=== PATIENT | male | born 1940 | race Caucasian/White ===

== ENCOUNTER 2019-10-14 10:02 | Observation (INO) | payer MEDICARE, OTHER ==
[~2019-10-14] VITALS: Ht 180.3 cm; Wt 75.9 kg
--- NOTE | 2019-10-14 13:00 | NUR ---
PT ARRIVED FROM ER. REPORT RECEIVED FROM FERDINAND OLSEN. PT TRANSFERES SELF TO BED, STEADY ON FEET WITH SBA. ASSESSMENT DONE. CRACKELS NOTED IN LOWER LOBES. RR = 20, WITH INCREASED LABOR WITH ACTIVITY. EDUCATION DONE WITH PT REGARDING DIAGNOSIS AND HOSPITAL STAY. SALT RESTRICION REVEIED WITH PT. LUNCH ORDERED. MEDICAITON GIVEN (SEE MAR). PT DENIES ADDITIONAL REQUESTS OR COMLAINTS AT THIS TIME. CALL LIGHT WITHIN REACH. FAMILY AT BEDSIDE.
--- NOTE | 2019-10-14 13:54 | NUR ---
THIS RN TO ROOM TO CHECK ON PT. LUNCH ARRIVED. PT UP TO CHAIR FOR LUNCH. MECHANICAL ENGINEERING DIRECTOR TO BEDSIDE FOR VITAL SIGNS. NO ADDITIONAL REQUESTS OR COMPLAINTS. CALL LIGHT WITHIN REACH.
--- NOTE | 2019-10-14 14:56 | NUR ---
THIS RN TO ROOM TO CHECK ON PT. PT RESTING IN CHAIR WITH EYES CLOSED. RESPIRATIONS EVEN AND UNLABORED. CALL LIGHT WITHIN REACH. PT ALLOWED TO REST.
--- NOTE | 2019-10-14 17:09 | NUR ---
PT SITTING UP IN CHAIR ALERT AND ORIENTED. CALL LIGHT AND FRESH ICE WATER IN REACH. PT DENIES NAUSEA, PAIN, SOB OR ANY OTHER SYMPTOMS. PT DENIES NEEDS OR CONCERNS. FAMILY AT BEDSIDE VISITING WITH PATIENT FAMILY ALSO DENIES NEEDS OR CONCERNS AT THIS TIME.
--- NOTE | 2019-10-14 17:33 | NUR ---
AFTERNOON ASSESSMENT DUE. PT VOIDING WELL WITH LASIX, LUNG SOUNDS IMPROVED WITH MINIMAL CRACKELS NOTED. PT DENIES PAIN AND NAUSEA. NO SWELLING IN EXTREMITIES NOTED. PT VISITING WITH FAMILY. CALL LIGTH WITHIN REACH. DINNER AT CHAIRSIDE. NO ADDITIONAL REQUESTS OR COMPLAINTS. CALL LIGHT WITHIN REACH.
--- NOTE | 2019-10-14 18:35 | NUR ---
PT NEW ADMIT TODAY WITH NEW DIAGNOSIS OF A-FIB AND HEART FAILURE. PULMONARY EDEMA NOTED. IV LASIX GIVEN, WITH GOOD RESPONSE. PT INDEPENDANT IN ROOM. HEART FAILURE EDUCATION DONE, CONTINUE TO REINFORCE. PT TOLERATING LOW SODIUM DIET WELL. TELE IN PLACE WITH A-FIB RHYTHEM, HR 70-90'S. PIV SALINE LOCKED. PT USES CALL LIGHT APPROPRIATLY.
--- NOTE | 2019-10-14 18:46 | NUR ---
PATIENT IS SETTING UP WATCHING TV. CALL LIGHT IN REACH ,FRESH WATER GIVEN
--- NOTE | 2019-10-14 19:26 | NUR ---
RECEIVED REPORT FROM FERDINAND SPAIN. pt SITTING IN CHAIR. NO REQUESTS AT THIS TIME. CALL LIGHT WITHIN REACH.
--- NOTE | 2019-10-14 22:02 | NUR ---
ASSESSMENT DONE. DENIES PAIN AND SOB AT THIS TIME. VITALS AND I&O RECORDED. NO REQUESTS. CALL LIGHT WITHIN REACH.
--- NOTE | 2019-10-14 23:17 | EKG ---
[facility] [address] [facility] [place] [address] Signed Atrial fibrillation Low voltage QRS Prolonged QT Abnormal ECG No previous ECGs available Confirmed by SANDIE KWAN MD ([id number] on 10/14/2019 11:16:52 PM Electronically Signed By: SANDIE KWAN MD 10/14/19 2317 PATIENT NAME: ABIGAIL RENE Electrocardiogram DATE OF : 42 PHYSICIAN: SANDIE KWAN MD REPORT #: [id number] REPORT IS CONFIDENTIAL AND NOT TO BE RELEASED WITHOUT AUTHORIZATION
--- NOTE | 2019-10-15 00:20 | NUR ---
ROUNDED ON pt. RESTING WITH EYES CLOSED, RESPIRATIONS REGULAR AND UNLABORED. CALL LIGHT WITHIN REACH.
--- NOTE | 2019-10-15 01:53 | NUR ---
VITALS AND I&O RECORDED. pt REPORTED HAVING SLEPT "A LITTLE BIT" NO REQUESTS AT THIS TIME. pt DENIES PAIN AND SOB. ASSESSMENT DONE. CALL LIGHT WITHIN REACH.
--- NOTE | 2019-10-15 03:28 | NUR ---
PT HAD NINE BEATS OF VTACH. FERDINAND VIVEROS AND MED SURG CHARGE NOTIFIED.
--- NOTE | 2019-10-15 03:31 | NUR ---
FERDINAND SKELTON CALLED, TELE #8 SHOWED 9 BEATS OF VTACH. IN TO ASSESS pt. pt ASLEEP WOKE TO VOICE. DENIED PALPITATIONS, SOB, LIGHTHEADNESS, ETC. STATED "I FEEL JUST FINE." COSTA UPDATED.
--- NOTE | 2019-10-15 06:05 | NUR ---
ROUNDED ON pt. NO COMPLAINTS, DENIES PAIN. CALL LIGHT WITHIN REACH.
--- NOTE | 2019-10-15 06:08 | NUR ---
pt RESTED MOST OF SHIFT. INDEPENDENT IN ROOM. TELE #8, A FIB RATE 60'S-70'S, ONE EPISODE OF 9 BEATS OF V TACH NOTED. pt WAS SLEEPING DURING EPISODE, NO SYMPTOMS REPORTED. IV SL. USES CALL LIGHT APPROPRIATLEY.
--- NOTE | 2019-10-15 06:47 | NUR ---
UPDATED ON VTACH EPISODE. NO NEW ORDERS AT THIS TIME.
--- NOTE | 2019-10-15 07:02 | NUR ---
REPORT RECEIVED FROM FERDINAND VIVEROS. PT RESTING ON RIGHT SIDE WITH EYES CLOSED, RESPIRATIONS EVEN AND UNLABORED. BED RAILS UP. CALL LIGHT WITHIN REACH. PT ALLOWED TO REST.
--- NOTE | 2019-10-15 08:26 | NUR ---
PATIENT SITTING UP IN CHAIR. PATIENT REFUSED TO TAKE A SHOWER TODAY BECAUSE HE THINKS THAT HE WILL GO HOME TODAY AND PREFERS TO TAKE A SHOWER AT HOME. URINAL WAS EMPTIED. CALL LIGHT WITHIN REACH. NO OTHER NEEDS AT THIS TIME
--- NOTE | 2019-10-15 09:18 | NUR ---
PATIENT SITTING UP IN CHAIR. VISITOR IN ROOM. VITAL SIGNS AND I&O DONE. CALL LIGHT WITHIN REACH. NO OTHER NEEDS AT THIS TIME
--- NOTE | 2019-10-15 10:05 | NUR ---
MORNING ASSESSMENT AND MEDICAITON DUE. PT UP TO CHAIR, FINISHED WITH BREAKFAST. EDUCATION DONE WITH PT REGARDING HEART FAILURE AND GREEN/YELLOW/RED ZONES AND DAILY WEIGHTS. PT DEMONSTRATES UNDERSTANDING AND STATES HE FEELS HE IS "BACK TO NORMAL" IN THE "GREEN" ZONE TODAY. LUNG SOUNDS CLEAR. KENA, HEART FAILURE NURSE TO BEDSIDE TO TALK WITH PT. NO ADDITONAL REQUESTS OR COMPLAINTS AT THIS TIME. CALL LIGHT WITHIN REACH.
--- NOTE | 2019-10-15 11:05 | NUR ---
Certified Heart Failure Nurse Notes: Diagnosis: CHF , atrial fibrillation [employer] Technician - not currently established PCP:not currently established Date of echocardiogram 10/15/19 results pending Today's Wt.: 167lb Admit BNP:627 Social support system: family at bedside Weight monitoring: No scale present in home. Mr Peres states he will and can purchase one at discharge. Identifies how to weigh daily/ identifies when to notify PCP Symptom management: Addressed monitoring and reporting changes in weight or symptoms utilizing Zones form Transportation mode: Has transportation for medical appointments, no concerns identified. Diet: Usual meals include home cooked items. Does not salt food. Rarely dines out or uses canned items such as soup. Demonstrated label reading for sodium and serving size. Recommended <2300 mg day. Usual physical activity: Farm work, works with livestock. Recommended walking routine after acute phase. Medication routine: Does not currently take any home medications. Patient given pill box to use at home and importance of taking cardiac medications on time reinforced. Tobacco:NA Advanced directive: Not discussed at this initial visit Recommendations prior to discharge: Document ambulation oxygen saturations prior to discharge Absence of orthostatic hypotension. Follow up appointment made prior to DC Discharge weight less than admit weight. Discharge BNP less than admit (as per [facility] Heart Failure DC Bundle) Barriers to self-care include: not established with PCP Follow-up plans: Will contact new PCP if patient qualifies for cardiac rehabilitation program. Post discharge f/u call to patient. Teaching materials given today: [facility] Heart Failure bundle folder-[facility] My Action Plan Living Well with Heart Failure book, Daily weight and symptom monitoring log, Zones magnet, [facility] contact information. Low Sodium Shopping list. 7 day pill reminder box
--- NOTE | 2019-10-15 12:03 | NUR ---
Spoke with Duglas and his daughter Radha. He lives outside [place] in a 5th wheel trailer. He is retired but does not use Medicare, states he is on the [employer] medicaid as this is more cost effective. His daughter will check on him when he discharges home. Appt. to establish care Dr. Chen scheduled for October 31 at 9 am. Pt states he usually healthy and plans discharge to his trailer alone. He denies use of any DME. 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 Berta Smith notified of incorrect address, phone number, and medicare as insurance for correction.
--- NOTE | 2019-10-15 13:06 | NUR ---
NOON ASSESSMENT DUE. THIS RN TO BEDSIDE. PT STATES HE IS READY TO LEAVE AND WOULD LIKE TO LEAVE SOON POSSIBLE. PT UPDATED ON PLAN OF CARE. EDUCATION DONE REGARDING EPISODE OF V-TACH AND PENDING ECHO RESULTS. PT RELUCANT TO STAY BUT VERBALIZES UNDERSTANDING. PT ENCOURAGED TO AMBULAT. PT UP TO AMBULATE DOWN MAIN KNIGHT. HR 70-80'S WITH AMBULATION. PT DENIES DYSPNEA WITH AMBULATION. A-FIB RHYTHEM. NO ADDITONAL REQUESTS OR COMPLAINTS AT THIS TIME. PT AMBULATING WITH DAUGHTER, CLAIRE. NO ADDITIONAL REQUESTS OR COMPLAINTS AT THIS TIME.
--- NOTE | 2019-10-15 13:26 | NUR ---
PATIENT SITTING UP IN CHAIR. VISITORS IN ROOM. VITAL SIGNS AND I&O DONE. CALL LIGHT WITHIN REACH. NO OTHER NEEDS AT THIS TIME
--- NOTE | 2019-10-15 14:15 | NUR ---
THIS RN TO ROOM TO CHECK ON PT. PT RESTING IN CHAIR WATCHING TV PROGRAM. WALK ENCORUAGED. PT STATES HE WILL WALK AFTER TV PROGRAM. NO ADDITIONAL REQUESTS OR COMPLAINTS AT THIS TIME. CALL LIGHT WITHIN REACH.
--- NOTE | 2019-10-15 14:28 | NUR ---
CONSULT RECEIVED FOR DIET EDUCATION FOR CHF. PATIENT SITTING IN CHAIR WATCHING TV. HE LIVES ALONE, DOES HIS OWN COOKING. DOESN'T EAT OUT VERY OFTEN. USUALLY MAKES MEAT, POTATOES, AND A VEGETABLE. SOMETIMES BUYS "THE CHEAPEST" CANNED VEGGIES, NOT PAYING ATTENTION TO IF THEY ARE NO SALT ADDED. I MENTIONED SOME ARE NO SALT ADDED AND SOME AREN'T SO BE SURE TO READ THE LABEL. HE WILL SAVE [address] SODIUM PER SERVING THAT [address]. HE READ OVER THE LOW-SODIUM GROCERY LIST ALREADY. REMINDED HIM TO KEEP HIS SODIUM INTAKE TO 2300 MG OR LESS EACH DAY.
[2019-10-15] MEDS ORDERED: POTASSIUM CHLO10 ME1 PO (16:03)
[2019-10-15] MEDS ORDERED: FUROSEMIDE20 MG PO (16:03)
--- NOTE | 2019-10-15 16:30 | NUR ---
THIS RN TO ROOM TO CHECK ON PT. 15 MINUTE DISSCUSSION HELD ABOUT PTS LIFE, HEART FAILURE AND FUTURE APPOINTMENTS. PT TEARFUL WITH NEW DIAGNOSIS. PT STATES GRATITUTE TO STAFF FOR THEIR SUPPORT. PT VERBALIZES UNDERSTANDING OF OPTIONS AND EDUCATION. PT REMAINS UP TO CHAIR. NO ADDITIONAL REQUESTS OR COMPLAINTS. CALL LIGHT WITHIN REACH.
--- NOTE | 2019-10-15 16:40 | NUR ---
REVIEWED WITH PT ABOUT CHF, PT STATES HE NORMALLY WEIGHS ABOUT 175 OR SO. "MY PANTS ARE FALLING OFF OF ME" STATES HE EATS GOOD FOOD NOT HIGH IN SODIUM. "I COOK FOR MYSELF, I THINK MY PROBLEM COMES FROM TOO MUCH STRESS IN MY LIFE AVERY I AM UNDER A LOT OF STRESS OF LATE." WE DISCUSSED THAT YES STRESS CAN CAUSE SX AND SIGNS OF CHF. PT STATES "I DON'T HAVE SWELLING, I DON'T EAT SALT. I DON'T GET IT" WE DISCUSSED IT A LITTLE MORE. I TOLD HIM I WILL RETURN TOMORROW TO TALK WITH HIM ABOUT IT MORE.
--- NOTE | 2019-10-15 17:25 | NUR ---
PT READY FOR DISCHARGE. PT DRESSES SELF WITH SBA. PIV DC'D PER PROTOCOL. GAUZE AND COBAN APPLIED. TELE DC'D. VITALS TAKEN. DISCHARGE INSTRUCTIONS REVIEWED WIHT PT. PT VERBALIZES UNDERSTANDING OF MEDICATIONS, FOLLOW UP APPOINTMENT AND INSTRUCTIONS. PT STATES HIS QUESTIONS HAVE BEEN ANSWERED. PT IS STAYING TO FINISH DINNER AND WAIT FOR HIS DAUGHTER BEFORE LEAVING THE HOSPITAL. NO ADDITIONAL REQUESTS OR COMPLAINTS AT THIS TIME. CALL LIGHT WITHIN REACH.
--- NOTE | 2019-10-15 17:25 | NUR ---
PATIENT SITTING UP IN CHAIR. RN IN ROOM. VITAL SIGNS AND I&O DONE. CALL LIGHT WITHIN REACH. NO OTHER NEEDS AT THIS TIME
--- NOTE | 2019-10-15 18:15 | NUR ---
PT FINISHED WITH DINNER. ALL BELONGINGS PACKED AND TRANSPORTED WITH PT. PT AMBULATED FROM MED/SURG WITH FAMILY. NO ADDIITONAL REQUESTS OR COMPLAINTS AT THIS TIME.
== END 2019-10-15 18:15 | disposition home or self-care (01) ==
LOC: ED 10:02 → MS 10:03
PROVIDERS: ADMIT Internal Medicine
DX: I50.9 Heart failure, unspecified (principal); I34.0 Nonrheumatic mitral (valve) insufficiency; I48.91 Unspecified atrial fibrillation; I27.20 Pulmonary hypertension, unspecified; Z79.899 Other long term (current) drug therapy
CPT/HCPCS: 36415; 71045; 80048; 80053; 80061; 83735; 83880; 84484; 85025; 93005; 93010; 93306; 99285-25; G0378; J1940

== ENCOUNTER 2021-05-13 12:21 | Emergency (ER) | payer MEDICARE, OTHER ==
[~2021-05-13] VITALS: Ht 177.8 cm; Wt 72.6 kg
[~2021-05-13 12:21] MED LIST: FUROSEMIDE20 MG PO; POTASSIUM CHLO10 ME1 PO
[2021-05-13] MEDS ORDERED: LASIX20 MG PO (12:47)
[2021-05-13] MEDS ORDERED: ELIQUIS5 MG PO (12:48)
[2021-05-13] MEDS ORDERED: METOPROLOL SUCC25 MG PO (12:48)
[2021-05-13] MEDS ORDERED: K-TAB ER20 MEQ PO (12:48)
--- NOTE | 2021-05-14 15:49 | EKG ---
[facility] [address] [facility] [place] [address] Signed Atrial fibrillation with premature ventricular or aberrantly conducted complexes Right superior axis deviation Low voltage QRS Inferior infarct , age undetermined Abnormal ECG When compared with ECG of 14-OCT-2019 10:16, QRS axis shifted left Nonspecific T wave abnormality, worse in Inferior leads Confirmed by NIA BELLO MD ([id number]) on 05/14/2021 3:49:08 PM Electronically Signed By: NIA BELLO MD 05/14/21 1549 PATIENT NAME: ABIGAIL RENE Electrocardiogram DATE OF : 42 PHYSICIAN: NIA BELLO MD REPORT #: [id number] REPORT IS CONFIDENTIAL AND NOT TO BE RELEASED WITHOUT AUTHORIZATION
== END 2021-05-13 15:55 | disposition home or self-care (01) ==
LOC: ED 12:21
DX: U07.1 COVID-19 (principal); I48.91 Unspecified atrial fibrillation; I50.9 Heart failure, unspecified; Z79.01 Long term (current) use of anticoagulants; Z79.899 Other long term (current) drug therapy
CPT/HCPCS: 71045; 80053; 80500; 84484; 85025; 93005; 93010; 99284-25; M0243; Q0244

== ENCOUNTER 2022-01-22 09:40 | Inpatient (IN) | payer MEDICARE, OTHER ==
[~2022-01-22] VITALS: Ht 177.8 cm; Wt 67.6 kg
[~2022-01-22 09:40] MED LIST changes: +ELIQUIS5 MG PO; +K-TAB ER20 MEQ PO; +LASIX20 MG PO; +METOPROLOL SUCC25 MG PO
[2022-01-22] MEDS ORDERED: AMIODARONE HCL200 MG PO (10:05)
[2022-01-22] MEDS ORDERED: LOSARTAN POTASS50 MG PO (10:05)
--- NOTE | 2022-01-22 12:56 | NUR ---
REPORT RECEIVED FROM METAL CASTER AND PT. ARRIVED VIA STRETCHER. HE IS ALERT AND ORIENTED. ON ROOM AIR. PT. BECAME TACHYPNEIC WHEN AMBULATING WITH 1PA TO THE BED. O2 SAT WAS 97%. IV ABX INFUSING AND AND IV FLUSHES WELL. DAUGHTER PRESENT. CHARGE NURSE IN TO ASSIST WITH SETTLING PT.
--- NOTE | 2022-01-22 13:54 | NUR ---
PT. ASSESSMENT COMPLETED. PT. REPORTS FEELING SOB, 02 SAT REMAINS 97%. HE REMAIN S TACHYPNEIC. WILL CONTINUE TO MONITOR. HE DENIES FURTHER NEEDS.
--- NOTE | 2022-01-22 15:00 | NUR ---
H.R. SHOWN ON THE MONITOR TO BE 130S. THIS NURSE CHECKED ON PT. HE WAS FOUND LYING HORIZONTAL ON BED WITH LEGS OVER THE EDGE. BREATHING LABORED. PT. UNABLE TO SIT UP AND REQUIRES TWO STAFF TO HOLD HIM UP TO USE URINAL. PT. HAD AN INCONTINENT BM AND CHANGED/CLEANED. HE STATES HE HAD A SIMILAR EPISODE LAST NIGHT. VITALS STABLE AND O2 SAT IS 94% ON RA. TELEMETRY READING ASYSTOLE. BATTERY AND TELEMETRY CHANGED AND LEADS REPOSITIONED. PACER SPIKES APPEAR TO BE ABNORMAL. VERBAL ORDER GIVEN BY FOR PACEMAKER INTEROGATION. DAUGHTER CALLED FOR PACER INFO. PT. BROUGHT FRESH WATER AND LEFT RESTING WITH CALL LIGHT IN REACH.
--- NOTE | 2022-01-22 15:27 | NUR ---
PATIENT HAVING PACEMAKER SPIKES AFTER QRS AND IN THE MIDDLE OF QRS. MD GAMBLE NOTIFIED OF TELEMETRY RESULTS. PER MD SORTO PACEMAKER. PATIENT DID NOT KNOW WHAT DEVICE HE HAD. RECORDS RECIEVED. PATIENTS DEVICE IS A [employer] PACEMAKER. LARISSA STREETER NOTIFIED OF PLANS.
--- NOTE | 2022-01-22 18:18 | NUR ---
AIR POLLUTION INSPECTOR REPORTS TEMP WAS 101.2 RECHECKED 20 MINUTES LATER AND WAS 99.4. PT HAD AN INCONTINENT VOID AND ASSISTED WITH CLEANING AND CHANGING BED. ASSISTED WITH SET UP FOR DINNER.
--- NOTE | 2022-01-22 19:00 | NUR ---
RECE[facility] PT IN BED, WATCHING TV.
--- NOTE | 2022-01-22 20:50 | NUR ---
in to get vitals, no further needs at this time
--- NOTE | 2022-01-22 21:30 | NUR ---
ASSESSMENT COMPLETED. PT ON RA, STATES THAT HE DOES HAVE ABDOMINAL PAIN OFF AND ON, THINKS HE WILL NEED TO HAVE BM SOON, ALTHOUGH HE HAD BM "YESTERDAY". CHEEKS FLUSHED, AFEBRILE. DENIES NEEDS, AWARE TO CALL IF HE NEEDS TO USE BATHROOM. TELE SHOWING PACED RHYTHYM. ON FLUID RESTRICTION. EDEMA BILATERAL FEET/ANKLES.
--- NOTE | 2022-01-22 22:15 | NUR ---
pt assisted to the bsc 2pa pivot, new attends in place, back to bed, no further needs at this time
--- NOTE | 2022-01-23 00:37 | NUR ---
CHECKED ON PT. LAYING ON HIS RIGHT SIDE, MOVING HIS LEFT HAND, EYES CLOSED. DRY COUGH HEARD OCCASSIONAL
--- NOTE | 2022-01-23 01:26 | NUR ---
CALLED CALLED TO NOTIFY ABOUT PT HAVING 100.9 F. TEMP THIS IS MEETS CALL [employer]. ALSO CLARIFIED THAT MD WANTS PT NPO NOW RATHER THAN AT BREAKFAST. NPO NOW, NO OTHER ORDERS AT THIS TIME, WILL CONT. TO MONITOR CLOSE.
--- NOTE | 2022-01-23 03:39 | NUR ---
PT CALLED NURSES STATION FOR ASSISTANCE TO USE BEDSIDE COMMODE, TWO PERSON PT IS WEAK AND UNSTEADY.
--- NOTE | 2022-01-23 05:53 | NUR ---
PT UP TO BEDSIDE COMMODE TWO PERSON HE MOVES FAST AND IS UNSTEADY. HE WAS ABLE TO VOID AND HAVE SMALL STOOL. TEMP 99.7 F AT THIS TIME ORAL.
--- NOTE | 2022-01-23 09:35 | NUR ---
MORNING ASSESSMENT COMPLETE. PT ON RA. FLUSHED CHEEKS. STATES OCCASIONAL ABD PAIN, DENIES NEED FOR INTERVENTION AT THIS TIME. PT DIET CHANGED TO 2GM SODIUM DIET FROM NPO, BREAKFAST TRAY ORDERED. FAMILY AT BEDSIDE. DENIES FURHTER NEEDS AT THIS TIME. CALL LIGHT WITHIN REACH.
--- NOTE | 2022-01-23 11:59 | NUR ---
Pt sitting up eating lunch. Family at bedside. Denies needs at this time. Call light within reach.
--- NOTE | 2022-01-23 12:00 | NUR ---
PT ASSISTED TO RESTROOM, 1 PERSON ASSIST. UNSTEADY WITH AMBULATION. YELLOW/BROWN LOOSE STOOL NOTED.
--- NOTE | 2022-01-23 13:07 | NUR ---
PT BP 91/50 MAP 60, SPOKE WITH DR GAMBLE REGARDING LASIX 40MG, HOLD THIS DOSE. NO FURTHER ORDERS.
--- NOTE | 2022-01-23 15:54 | NUR ---
PT RESTING IN BED, AWAKENS EASILY. DENIES NEEDS AT THIS TIME. CALL LIGHT WITHIN REACH.
--- NOTE | 2022-01-23 17:55 | NUR ---
PT SITTING UP IN BED EATING DINNER. DENIES NEEDS AT THIS TIME. CALL LIGHT WITHIN REACH.
--- NOTE | 2022-01-23 19:40 | NUR ---
REPORT RECEIVED FROM DAY SHIFT RN. PT LYING IN BED ON LEFT SIDE RESTING WITH EYES CLOSED. RESPIRATIONS EVEN. WHITE BOARD UPDATED. CALL LIGHT IN REACH.
--- NOTE | 2022-01-23 20:27 | NUR ---
PATIENTS TELE LEADS FIXED. PATIENT ASSISTED TO TURN ON HIS LEFT SIDE. NO FURTHER NEEDS NOTED. CALL LIGHT IN REACH.
--- NOTE | 2022-01-23 20:45 | NUR ---
EVENING ASSESSMENT COMPLETE. PT DENIES PAIN OR NAUSEA. DENIES SOB AT REST. RESPIRATIONS EVEN. TELE #[address] PACED RHYTHM, HR 60'S. VS AND I&O COMPLETE. PT AFEBRILE. EDEMA NOTED IN BLE. ASSISTED PT TO REPOSITION IN BED. DENIES QUESTIONS OR CONCERS. BED ALARM FOR SAFETY. CALL LIGHT IN REACH.
--- NOTE | 2022-01-23 22:24 | NUR ---
BED ALARM SOUNDING. PT UP TO SIDE OF BED TO VOID 250 ML CONCENTRATED URINE WITH SBA. BACK TO BED, SALINA WELL. BED ALARM ON. CALL LIGHT IN REACH.
--- NOTE | 2022-01-24 00:19 | NUR ---
PT RESTING IN BED WITH EYES CLOSED. RESPIRATIONS EVEN. BED ALARM FOR SAFETY. CALL LIGHT IN REACH.
--- NOTE | 2022-01-24 02:42 | NUR ---
PT RESTING ON LEFT SIDE WITH EYES CLOSED. RESPIRATIONS EVEN. TELE #4. HR 60'S. BED ALARM FOR SAFETY. CALL LIGHT IN REACH.
--- NOTE | 2022-01-24 03:30 | NUR ---
PT REPOSITIONING SELF IN BED. TELE LEADS WERE OFF, IN ROOM TO REPLACE. PT DENIES PAIN OR NAUSEA. DENIES SOB OR CHEST PAIN. ASSISTED TO STRAIGHTEN LINEN. ASSESSMENT COMPLETE. PT DENIES FURTHER NEEDS. BED ALARM ON. CALL LIGHT IN REACH.
--- NOTE | 2022-01-24 06:37 | NUR ---
VS AND I&O COMPLETE. PT UP TO BR WITH SBA AND FWW TO VOID 350 ML CONCENTRATED URINE. GAIT WEAK AND UNSTEADY. BACK TO BED. DENIES SOB AT THIS TIME. NO FURTHER NEEDS. CALL LIGHT IN REACH.
--- NOTE | 2022-01-24 10:03 | NUR ---
PATIENT UP TO CHAIR, 1PA FWW. VITALS AND I&O'S CHARTED. CHAIR ALARM ON. CALL LIGHT IN REACH. NO FURTHER NEEDS AT THIS TIME.
--- NOTE | 2022-01-24 10:06 | NUR ---
MED REC COMPLETE
--- NOTE | 2022-01-24 10:31 | NUR ---
MORNING ASSESSMENT COMPLETE. PT SITTING UP IN RECLINE, DENIES NEEDS AT THIS TIME. CALL LIGHT WITHIN REACH.
--- NOTE | 2022-01-24 11:18 | NUR ---
PT ASSISTED FROM BATHROOM TO RECLINER. DENIES NEEDS AT THIS TIME. CALL LIGHT WITHIN REACH.
--- NOTE | 2022-01-24 12:39 | NUR ---
PT SITTING UP IN RECLINER, DENIES NEEDS AT THIS TIME. CALL LIGHT WITHIN REACH.
--- NOTE | 2022-01-24 15:55 | NUR ---
PT RESTING IN RECLINER. RESPIRATIONS EVEN AND UNLABORED. CALL LIGHT WITHIN REACH.
--- NOTE | 2022-01-24 19:41 | NUR ---
REPORT RECEIVED FROM DAY SHIFT RN. PT SITTING IN RECLINER ALERT AND ORIENTED. DENIES NEEDS AT THIS TIME. WHITE BOARD UPDATED. CALL LIGHT IN REACH.
--- NOTE | 2022-01-24 20:58 | NUR ---
EVENING ASSESSMENT COMPLETE. PT DENIES PAIN OR NAUSEA. SpO2 97% ON RA. RESPIRATIONS EVEN. PT DENIES SOB. LUNG CLEAR, DIMINISHED IN RIGHT LOWER LOBE. TRACE EDEMA BLE. TELE # [address] PACED RHYTHM. HR 60-80'S. VOID QS. VS AND I&O COMPLETE. PT REMAINS IN RECLINER IT IS MORE COMFORTABLE FOR HIM THAN THE BED. EXTRA BLANKET PROVIDED. PT DENIES QUESTIONS OR CONCERNS. CALL LIGHT IN REACH.
--- NOTE | 2022-01-24 21:00 | NUR ---
CALL LIGHT ANSWERED. PATIENT C/O CEILING VENT BLOWS ON HIS FACE WHILE UP IN THE CHAIR SO HE WANTS TO GO TO BED. SBA. USED WALKER. CALL LIGHT AND SIDE TABLE WITHIN REACH. ICE WATER REFRESHED. WARM BLANKET PROVIDED. BED ALARM ON FOR SAFETY.
--- NOTE | 2022-01-24 23:27 | NUR ---
PT RESTING IN BED WITH EYES CLOSED. RESPIRATIONS EVEN. CALL LIGHT IN REACH. BED ALARM FOR SAFETY.
--- NOTE | 2022-01-25 00:50 | NUR ---
PATIENT CALLED. BED RAIL DOWN FOR HIM TO SIT BY THE EDGE OF THE BED TO USE THE URINAL. URINAL EMPTIED WITH 325ML CONTENT. PATIENT IS BACK LAYING IN BED. NO OTHER CARE NEEDS AT THIS TIME. BED ALARM ON FOR SAFETY.
--- NOTE | 2022-01-25 04:22 | NUR ---
PT RESTING IN BED WITH EYES CLOSED. RESPIRATIONS EVEN. TELE #4. PACED RHYTHM. HR 60. BED ALARM IN PLACE. CALL LIGHT IN REACH.
--- NOTE | 2022-01-25 05:49 | NUR ---
VS AND I&O COMPLETE. DAILY WEIGHT OBTAINED. PT UP TO BR WITH SBA AND FWW TO VOID AND HAVE MEDIUM SOFT BM. BACK TO BED. WARM BLANKET PROVIDED. PT DENIES PAIN OR NAUSEA. DENIES SOB. WARM WATER AND SUPPLIES PROVIDED FOR TEA. BED ALARM ON. CALL LIGHT IN REACH.
--- NOTE | 2022-01-25 07:21 | NUR ---
REPORT FROM ANAHI DE LA ROSA.
--- NOTE | 2022-01-25 07:51 | NUR ---
MORNING ASSESSMENT. PATIENT IS NPO AND THIS IS DISCUSSED WITH PATIENT. PATIENT IS RESTING IN BED, DENIES PAIN, NO SOB. LEFT LUNG IS CLEAR, RIGHT LUNG IS CLEAR AND DIM IN BASE. PATIENT IS BACK TO SLEEP AFTER ASSESSMENT.
--- NOTE | 2022-01-25 10:12 | NUR ---
MORNING MEDICATIONS GIVEN. DAUGHTER FELICE IN TO SEE PATIENT. DR. GAMBLE IN TO SEE PATIENT.
--- NOTE | 2022-01-25 10:42 | NUR ---
PATIENT IN BED LISTENING TO MUSIC. VITALS AND I&O'S CHARTED. CALL LIGHT IN REACH. NO FURTHER NEEDS AT THIS TIME.
--- NOTE | 2022-01-25 13:25 | NUR ---
PATIENT ATE A VERY LIGHT LUNCH 40%. IV LASIX GIVEN. PATIENT DENIES OTHER NEEDS AT THIS TIME.
--- NOTE | 2022-01-25 14:16 | NUR ---
PATIENT TO IMAGING FOR THORACENTESIS. DAUGHTER FELICE IS IN ROOM.
--- NOTE | 2022-01-25 14:33 | NUR ---
PT TAKEN TO IMAGING WILL FOLLOW
--- NOTE | 2022-01-25 15:25 | NUR ---
PATIENT BACK FROM IMAGING, UP TO BATHROOM TO VOID, BACK TO BED
--- NOTE | 2022-01-25 15:39 | NUR ---
PATIENT SITTING UP IN BED WATCHING TV. VITALS AND I&O'S CHARTED. CALL LIGHT IN REACH. NO FURTHER NEEDS AT THIS TIME.
--- NOTE | 2022-01-25 17:28 | NUR ---
PATIENT HAD THORACENTESIS IN RADIOLOGY TODAY. PATIENT HAS DONE WELL BEFORE AND AFTER, HAS BEEN ON ROOM AIR THROUGHOUT THE DAY. PLAN IS FOR PATIENT TO DISCHARGE HOME TOMORROW.
--- NOTE | 2022-01-25 18:30 | NUR ---
PATIENT IN BED WATCHING TV. VITALS AND I&O'S CHARTED. FRESH WATER AND WARM BLANKET GIVEN. CALL LIGHT IN REACH. NO FURTHER NEEDS AT THIS TIME.
--- NOTE | 2022-01-25 19:30 | NUR ---
REPORT RECIEVED FROM DAY SHIFT RN. PT LYING ON RIGHT SIDE WITH EYES CLOSED. RESPIRATIONS EVEN. WHITE BOARD UPDATED. CALL LIGHT IN REACH.
--- NOTE | 2022-01-25 21:30 | NUR ---
EVENING ASSESSMENT COMPLETE. PT DENIES PAIN OR NAUSEA. DENIES SOB. SpO2 95% ON RA. RESPIRATIONS EVEN. LUNGS CLEAR, DIM IN RIGHT BASE. VS AND I&O COMPLETE. FRESH WATER PROVIDED. PT DENIES QUESTIONS OR CONCERS. CALL LIGHT IN REACH.
--- NOTE | 2022-01-26 00:31 | NUR ---
PT RESTING ON RIGHT SIDE. EYES CLOSED. RESPIRATIONS EVEN. CALL LIGHT IN REACH.
--- NOTE | 2022-01-26 03:00 | NUR ---
PT DOZING ON AND OFF. SpO2 96% ON RA. HR 60'S. PT DENIES SOB. DENIES PAIN OR NAUSEA. LUNGS CLEAR, DIM IN RIGHT BASE. FRESH WATER PROVIDED. DENIES FURTHER NEEDS. CALL LIGHT IN REACH.
--- NOTE | 2022-01-26 06:02 | NUR ---
VS AND I&O COMPLETE. SpO2 95% ON RA. HR 60'S. RESPIRATIONS EVEN. PT DENIES PAIN OR NAUSEA. DENIES SOB. DAILY WEIGHT OBTAINED. WARM BLANKET PROVIDED. PT DENIES FURTHER NEEDS. CALL LIGHT IN REACH.
--- NOTE | 2022-01-26 07:20 | NUR ---
Report received from Latoya STREETER. Pt resting in bed with eyes closed, even and unlabored respirations, no needs identified at this time. Will continue plan of care.
[2022-01-26] MEDS ORDERED: FUROSEMIDE40 MG PO (07:41)
[2022-01-26] MEDS ORDERED: LOSARTAN POTASS50 MG PO (07:41)
[2022-01-26] MEDS ORDERED: AMOXICILLIN500 MG PO (07:42)
[2022-01-26] MEDS ORDERED: DOXYCYCLINE HY100 MG PO (07:43)
--- NOTE | 2022-01-26 08:19 | NUR ---
PT INDEPENDENT AMBULATORY TO BATHROOM WITH WALKER. SMALL BM AND 200 MLS URINE OUTPUT. PT BACK TO BED. DENIES ANY OTHER NEEDS AT THIS TIME. STATES "IT FELT GOOD TO WALK".
--- NOTE | 2022-01-26 09:03 | NUR ---
Scheduled medications administered and assessment complete. Pt resting in bed after eating breakfast. VSS, I/O complete. Pt on room air, 96%, denies SOB. Lung sounds clear, diminished. HRR, paced. Bowel tones active and pt had small bm this am. Pt agreeable to plan of care. No further needs at this time.
--- NOTE | 2022-01-26 12:00 | NUR ---
Discharge teaching provided to patient and his daughter regarding home care, rx and instructions, follow up appointments and generalized management of care. Verbalized understanding and all questions answered. IV removed, VSS. Pt declines eating lunch prior to DC. Pharmacy Demetrius in room to community health counselor pt and family.
--- NOTE | 2022-01-26 19:03 | EKG ---
[facility] [address] [facility] [place] [address] Signed Poor data quality, interpretation may be adversely affected Atrial-sensed ventricular-paced rhythm Abnormal ECG When compared with ECG of 13-MAY-2021 13:18, Electronic ventricular pacemaker has replaced Atrial fibrillation Confirmed by NIA BELLO MD ([id number]) on 01/26/2022 7:03:11 PM Electronically Signed By: NIA BELLO MD 01/26/22 190 PATIENT NAME: ABIGAIL RENE Electrocardiogram DATE OF : 42 PHYSICIAN: NIA BELLO MD REPORT #: [id number] REPORT IS CONFIDENTIAL AND NOT TO BE RELEASED WITHOUT AUTHORIZATION
== END 2022-01-26 12:00 | disposition home or self-care (01) | DRG 193 ==
LOC: ED 09:40 → MS 11:33
PROVIDERS: ADMIT Hospitalist; ATTEND Hospitalist
PROC: 0W9930Z Drainage of Right Pleural Cavity with Drainage Device, Percutaneous Approach (ICD-10-PCS; principal; 2022-01-22)
DX: J18.9 Pneumonia, unspecified organism (principal); I50.43 Acute on chronic combined systolic (congestive) and diastolic (congestive) heart failure; J91.8 Pleural effusion in other conditions classified elsewhere; N17.9 Acute kidney failure, unspecified; J98.11 Atelectasis; I48.20 Chronic atrial fibrillation, unspecified; I95.9 Hypotension, unspecified; Z20.822 Contact with and (suspected) exposure to COVID-19; Z86.16 Personal history of COVID-19; Z79.01 Long term (current) use of anticoagulants; Z79.899 Other long term (current) drug therapy
CPT/HCPCS: 32555; 36415; 71045; 71046; 71250; 80048; 80053; 83880; 84157; 84484; 85025; 85610; 87070; 87205; 87502; 89051; 93005; 93010; 96365; 96366; 96375; 99285-25; C9803; J0456; J0696; J1940; U0003

== ENCOUNTER 2024-04-11 09:34 | Inpatient (IN) | payer MEDICARE, OTHER ==
[~2024-04-11] VITALS: Ht 177.8 cm; Wt 59.0 kg
[~2024-04-11 09:34] MED LIST changes: +AMIODARONE HCL200 MG PO; +AMOXICILLIN500 MG PO; +DOXYCYCLINE HY100 MG PO; +FUROSEMIDE40 MG PO; +LOSARTAN POTASS50 MG PO
[2024-04-11 10:09] LABS: HEMATOCRIT 41.4 % (35.0-50.0); HEMOGLOBIN 14.1 g/dL (12.0-18.0); LYMPHOCYTES 14.8 % (24-44); MCH 33.9 (27-36); MCV 99.5 fl (81-99); MONOCYTES 13.4 % (0-12); NEUTROPHILS 60.8 % (39-80); PLATELET COUNT 178 K/uL (140-440); RBC 4.17 M/ul (4.3-5.7)
[2024-04-11] MEDS ORDERED: ondansetron HCL 4 MG/2 ML VIAL IV ONE (10:15)
[2024-04-11] MEDS ORDERED: SODIUM CHLORIDE 0.9% 500 ML IV ONE (10:15)
[2024-04-11 10:18] LABS: ALBUMIN 3.4 g/dL (3.4-5.0); ALBUMIN/GLOBULIN RATIO 0.92 (1.1-2.4); ANION GAP 14.2 (7-21); BILIRUBIN, TOTAL 1.9 ng/dL (0.2-1.0); BUN/CREATININE RATIO 22.55 (6.0-28.6); CALCIUM 9.1 mg/dL (8.5-10.1); CREATININE, SERUM 2.97 mg/dL (0.70-1.30); POTASSIUM 4.2 mmol/L (3.5-5.1); PROTEIN, TOTAL 7.1 g/dL (6.4-8.2)
[2024-04-11] MEDS ORDERED: VENTOLIN HFA18 GM INH (10:45)
[2024-04-11] MEDS ORDERED: ADVAIR 250-501 EACH INH (10:45)
[2024-04-11] MEDS ORDERED: PREDNISONE20 MG PO (10:45)
[2024-04-11] MEDS ORDERED: ELIQUIS2.5 MG PO (13:55)
[2024-04-11] MEDS ORDERED: TORSEMIDE20 MG PO (14:06)
[2024-04-11] MEDS ORDERED: POTASSIUM CHLO10 ME2 PO (14:07)
[2024-04-11] MEDS ORDERED: ISOSORBIDE MONO30 MG PO (14:07)
[2024-04-11] MEDS ORDERED: LACTATED RINGER'S 1,000 ML IV SCH (14:15)
--- NOTE | 2024-04-11 14:27 | NUR ---
PT TO ROOM 109 FROM ED. ARRIVES ON STRETCHER. AMBULATES TO BED WITH NO DIFFICUTY
[2024-04-11 14:29] VITALS: BP 122/77
[2024-04-11] MEDS ORDERED: ondansetron HCL 4 MG/2 ML VIAL IV PRN (14:45)
--- NOTE | 2024-04-11 14:55 | NUR ---
PATIENT ALERT AND ORIENTED IN BED. DEMOGRAPHICS VERIFIED WITH PATIENT. STATES [place] [address]RE[address] ADDRESS. STATES HE DOES HAVE STEPS TO GET INTO 5TH WHEEL, WITH RAILS AND HE DOES OK GETTING IN AND OUT. STATES HE HAS HAD A FEW RECENT FALLS. HAS NO DME. PATIENT DRIVES, BUT NOT AT NIGHT. HE HAS HAD NO FINANCIAL ISSUES PAYING FOR FOOD, MEDICATIONS. STATES HE HAS HAS NOT BEEN EATING WELL DUE TO ILLNESS RECENTLY. STATES HE DOES NOT CURRENTLY HAVE ANY NEEDS. INFORMED HIM STAFF WILL SPEAK WITH HIM AGAIN TOMORROW TO VERIFY HE STILL HAS NO NEEDS. VERBALIZES UNDERSTANDING.
--- NOTE | 2024-04-11 15:08 | NUR ---
PATIENT ADMITTED TO MED SURG. PATIENT DENIES PAIN OR NAUSEA AT THIS TIME. PATIENT IS SIPPING ICE WATER. PATIENT TO IMAGING TO HAVE CHEST X-RAY. BNP ADDED TO LABS, PER DR. ZAYAS. PATIENT BACK TO BED, WARM BLANKENTS, IVF RESUMED. DAUGHTER IS IN ROOM. PATIENT TO HAVE 1L OF NS AND THEN TO BE SALINE LOCKED.
--- NOTE | 2024-04-11 15:58 | NUR ---
TALKED WITH DR. ZAYAS REGARDING GRANDDAUGHTERS CONCERN ABOUT PATIENT HAVING AMYLIDOSIS.
[2024-04-11] MEDS ORDERED: SPIRONOLACTONE25 MG PO (16:29)
[2024-04-11 18:14] VITALS: BP 81/47
--- NOTE | 2024-04-11 18:31 | NUR ---
PATIENT IS RESTING IN BED, ATE DINNER WELL, NO NAUSEA. NO NEEDS AT THIS TIME.
--- NOTE | 2024-04-11 19:05 | NUR ---
REPORT RECEIVED FROM LATHA STREETER. pt RESTING IN THE BED. BOARD UPDATED. CALL LIGHT WITHIN REACH.
[2024-04-11 19:48] VITALS: BP 88/51
[2024-04-11 19:54] VITALS: BP 88/51
[2024-04-11] MEDS ORDERED: APIXABAN 2.5 MG TAB PO SCH (21:00)
--- NOTE | 2024-04-11 21:40 | NUR ---
ASSESSMENT AND VITAL SIGNS DONE. pt SBP IN THE 80s. MARQUEZ ON FLOOR AND WENT IN ROOM TO ROUND WITH pt. NO NEW ORDERS AT THIS TIME. pt DENIES ANY SYMPTOMS AT THIS TIME. IVF ASSESSED, WNL. IVF DC'D. BED ALARM ON. pt DENIES ANY OTHER NEEDS AT THIS TIME. CALL LIGHT WITHIN REACH.
--- NOTE | 2024-04-11 23:58 | NUR ---
pt RESTING IN THE BED WITH EYES CLOSED. RR EVEN AND UNLABORED. CALL LIGHT WITHIN REACH.
[2024-04-12] VITALS (20 sets, daily range): BP systolic 80–126; BP diastolic 48–99
--- NOTE | 2024-04-12 01:38 | NUR ---
pt RESTING IN THE BED WITH EYES CLOSED. RR EVEN AND UNLABORED. CALL LIGHT WITHIN REACH.
--- NOTE | 2024-04-12 03:19 | NUR ---
pt RESTING IN THE BED WITH EYES CLOSED. RR EVEN AND UNLABORED. CALL LIGHT WITHIN REACH.
--- NOTE | 2024-04-12 05:22 | NUR ---
ASSESSMENT AND VITAL SIGNS DONE. pt RESTING IN THE BED. pt STATES HE HAD TO PEE REALLY BAD LAST NIGHT SO HE GOT UP ON HIS OWN. pt WAS REMINDED TO CALL BEFORE HE GET UP DUE TO HIS DIZINESS. NO OTHER NEEDS AT THIS TIME. CALL LIGHT WITHIN REACH.
[2024-04-12 05:36] LABS: EOSINOPHILS 17.7 % (0-6); HEMATOCRIT 37.5 % (35.0-50.0); HEMOGLOBIN 12.6 g/dL (12.0-18.0); LYMPHOCYTES 20.6 % (24-44); MCH 33.5 (27-36); MCHC 33.6 g/dl (30-36); MCV 99.9 fl (81-99); MONOCYTES 13.2 % (0-12); NEUTROPHILS 46.5 % (39-80); PLATELET COUNT 148 K/uL (140-440); RBC 3.75 M/ul (4.3-5.7); RDW 15.1 (10.5-15.0)
[2024-04-12 05:55] LABS: ALBUMIN 2.6 g/dL (3.4-5.0); ALBUMIN/GLOBULIN RATIO 0.81 (1.1-2.4); ANION GAP 13.5 (7-21); BILIRUBIN, TOTAL 1.5 ng/dL (0.2-1.0); BUN/CREATININE RATIO 22.55 (6.0-28.6); CALCIUM 8.4 mg/dL (8.5-10.1); CREATININE, SERUM 2.35 mg/dL (0.70-1.30); POTASSIUM 4.5 mmol/L (3.5-5.1); PROTEIN, TOTAL 5.8 g/dL (6.4-8.2)
--- NOTE | 2024-04-12 07:08 | NUR ---
Pt report received from FERDINAND Corley. Pt is resting, awake, in bed, denies any needs at this time. Call light in reach, side rails up x4. Board updated.
[2024-04-12] MEDS ORDERED: LACTATED RINGER'S 500 ML IV SCH (07:30)
--- NOTE | 2024-04-12 07:51 | NUR ---
Board has been updated and call light has been placed within reach. No request from patient at this time
[2024-04-12] MEDS ORDERED: METOPROLOL SUCCINATE 25 MG TABCR PO SCH (09:00)
[2024-04-12] MEDS ORDERED: AMIODARONE HCL 200 MG TAB PO SCH (09:00)
--- NOTE | 2024-04-12 09:20 | NUR ---
Spoke with Cecilio. He states he lives in [place] in his 5th wheel. Family are moving his 5th wheel this week to his son, Isiah, home. [employer] was moved yesterday. Pt has a cane at home and does need or want any other DME. Pt drives. Pt states he is feeling better and able to eat today. He would like to dc soon as he would like to go to a roping on Tuesday. Let him know he will need to discuss this with Dr. Franks. Pt states he provides his own care and cooks, cleans, shops for himself. He states he stopped drinking a few years ago, does have an occasional beer. Pt denies financial issues. Pt plans on dc to home when cleared by Dr. Franks.
--- NOTE | 2024-04-12 09:46 | NUR ---
UR CLINICAL REVIEW: 2MN MARCELA-MEETS OBS CRITERIA MEDICARE OBS 04/11/24 @ 0935 NO AUTH REQUIRED PER MEDICARE RULES PLAN TO DC TO 5TH WHEEL ON SON'S PROPERTY AT DC. 04/13/24
--- NOTE | 2024-04-12 10:09 | NUR ---
Received a phone call from the pt's daughter, Radha, who requested Dr. Franks contact her. Message passed to Dr. Franks who reached out to the pt's daughter by phone.
[2024-04-12] MEDS ORDERED: LOSARTAN POTASS25 MG PO (10:23)
--- NOTE | 2024-04-12 10:25 | NUR ---
MED REC COMPLETE
[2024-04-12] MEDS ORDERED: FUROSEMIDE 40 MG/4 ML VIAL IV STA (10:45)
--- NOTE | 2024-04-12 11:03 | NUR ---
Per Dr. Franks, will administered the ordered dose of 40mg lasix IV and will request initiation of transfer orders to a higher level of care for this patient (cardiology). Dr. Franks advised he has spoken with the patient's daughter who is aware of the decision.
--- NOTE | 2024-04-12 11:22 | NUR ---
PT PLACED ON TELE. IV LASIX 40MG ADMINISTERED PER EMAR, SLOW IVP. URINAL PLACED WITHIN REACH OF PT AT BEDSIDE. ENCOURAGED PT TO USE CALL LIGHT.
[2024-04-12] MEDS ORDERED: PHARMACY RENAL DOSE ADJUSTMENT 1 DOSE MISC PO SCH (12:00)
[2024-04-12] MEDS ORDERED: NOREPINEPHRINE BITARTRATE 250 ML IV SCH (15:30)
--- NOTE | 2024-04-12 15:49 | NUR ---
Pt transferred to CCU Room 128 at about 1540 hours. Pt's family followed. Pt report provided to FERDINAND Aceves. Pt personal belongings transferred with pt, collected by patient's family members. Nothing left in lock box in pt's room, nothing noted in kits in pyxis.
--- NOTE | 2024-04-12 16:03 | NUR ---
PATIENT ARRIVES TO ROOM 128 AT 1540 FROM MED/SURG ROOM 109. PT IS ON THE TRANSFER LIST TO TRANSFER TO [facility] IN [place], [place]. PATIENT ARRIVES ALERT, ORIENTED, AND IN NO ACUTE DISTRESS. BP UPON ARRIVAL 93/62 (72). PT'S DAUGHTER FELICE AND ANOTHER WOMAN IN ROOM WITH THEM. ORDERS TO START NOREPI IF MAP STAYS BELOW 65.
--- NOTE | 2024-04-12 19:15 | NUR ---
PATIENT HAS CONTINUED TO NOT NEED NOREPINEPHRINE TO KEEP BP ELEVATED, AND MAP HAS MAINTAINED >65. PT'S FAMILY REMAINS IN ROOM. PT ABLE TO EAT ALL OF HIS DINNER WITHOUT ANY NAUSEA. PT IS ON A WAIT LIST AT BOTH [facility] AND [facility]. FAMILY IS AWARE OF THIS. REPORT TO CONE OPERATOR.
--- NOTE | 2024-04-12 20:06 | NUR ---
REPORT RECEIVED FROM DAY SHIFT RN. PT RESTING IN BED WATCHING TV. PT IS A/O, DENIES ANY PAIN, SOB, OR NAUSEA. PT LUNGS ARE CLEAR IN THE UPPER LOBES AND DIMINISHED IN THE LOWER LOBES. PT ON ROOM AIR WITH SATURATION AT 100%. PT BT ARE ACTIVE. CMS INTACT, PT DENIES AND NUMBNESS OR TINGLING. PT IV SITE WNL. PT HAS NO NEEDS AT THIS TIME. CALL LIGHT WITHIN REACH, BED IN LOW AND LOCKED POSTION.
--- NOTE | 2024-04-12 22:10 | NUR ---
PT USED CALL LIGHT REQUESTING TO USE THE RESTROOM. PT UP TO BATHROOM AND BACK TO BED WITH X1 SBA FOR CORD MANAGMENT. PT SCAB ON LEFT BUTTOCKS AREA NOTED TO BREAK OPEN, MEPILEX APPLIED. CALL LIGHT WITHIN REACH, BED IN LOW AND LOCKED POSTION. NO FURTHER NEEDS AT THIS TIME
[2024-04-13] VITALS (21 sets, daily range): BP systolic 78–120; BP diastolic 48–97
--- NOTE | 2024-04-13 00:30 | NUR ---
PT ASSESSMENT COMPLETE. NO NEW CHANGES. PT VSS. PT REMAINS ON RA, LUNG SOUNDS CLEAR BUT DIMINISHED. PT BT ARE ACTIVE. PT DENIES ANY NAUSEA, SOB, OR PAIN. PT BLOOD PRESSURES REMAIN ABOVE A MAP OF 65. NO NEEDS AT THIS TIME. CALL LIGHT WITHIN REACH, BED IN LOW AND LOCKED POSTION.
--- NOTE | 2024-04-13 02:13 | NUR ---
PT UP TO BATHROOM AND BACK TO BED, X1 PERSON SBA FOR CORD MANAGEMENT. PT HAS NO FURTHER NEEDS AT THIS TIME. CALL LIGHT WITHIN REACH, BED IN LOW AND LOCKED POSTION.
--- NOTE | 2024-04-13 04:31 | NUR ---
PT ASSESSMENT COMPLETE. NO NEW CHANGES. PT VITAL SIGNS REMAIN STABLE. PT HAS NO NEEDS AT THIS TIME. CALL LIGHT WITHIN REACH, BED IN LOW AND LOCKED POSTION.
[2024-04-13 05:37] LABS: BASOPHILS 2.7 % (0-2); EOSINOPHILS 18.7 % (0-6); HEMATOCRIT 36.8 % (35.0-50.0); HEMOGLOBIN 12.4 g/dL (12.0-18.0); LYMPHOCYTES 17.1 % (24-44); MCH 33.9 (27-36); MCHC 33.8 g/dl (30-36); MCV 100.2 fl (81-99); MONOCYTES 11.3 % (0-12); NEUTROPHILS 50.2 % (39-80); PLATELET COUNT 147 K/uL (140-440); RBC 3.67 M/ul (4.3-5.7); RDW 14.6 (10.5-15.0)
--- NOTE | 2024-04-13 06:04 | NUR ---
IN PT ROOM FOR MORNING LAB DRAW. PT THEN REQUEST TO USE BATHROOM. PT UP TO BATHROOM AND BACK TO BED, X1 PERSON SBA FOR CORD MANAGEMENT. PT PROVIDED WITH A WARM BLANKET. NEW BORDER FOAM PLACED ON PT LEFT HIP/BUTTOCK AREA. PT PROVIDED WITH FRESH ICE WATER. NO FURTHER NEEDS AT THIS TIME. CALL LIGHT WITHIN REACH
[2024-04-13 06:06] LABS: ALBUMIN 2.6 g/dL (3.4-5.0); ALBUMIN/GLOBULIN RATIO 0.79 (1.1-2.4); ANION GAP 12.2 (7-21); BILIRUBIN, TOTAL 1.2 ng/dL (0.2-1.0); BUN/CREATININE RATIO 22.74 (6.0-28.6); CREATININE, SERUM 2.11 mg/dL (0.70-1.30); MAGNESIUM 2.2 mg/dL (1.8-2.4); POTASSIUM 4.2 mmol/L (3.5-5.1); PROTEIN, TOTAL 5.9 g/dL (6.4-8.2)
[2024-04-13 06:19] LABS: CALCIUM 8.3 mg/dL (8.5-10.1)
--- NOTE | 2024-04-13 08:16 | NUR ---
PATIENT UP TO BATHROOM TO VOID SBA, HE ALSO SHAVED WITH HIS ELECTRIC SHAVER AND BRUSHED HIS TEETH. PATIENT TOLERATED ACTIVITY WELL.
--- NOTE | 2024-04-13 10:04 | NUR ---
ROUNDING IN PATIENT ROOM, PATIENT IS SITTING UP IN BED, REPORTS, "I HAVE BEEN TRYING TO CALL, I NEED TO GO TO THE BATHROOM." THIS RN ASSISTED PATIENT TO BATHROOM, HE VOIDED AND HAD BM WITH FLATUS. THAT THE CALL LIGHT ON LEFT RAIL NOT WORKING, THE HAND HELD IS WORKING. DISCUSSED WITH PATIENT ONCE HE WAS BACK IN BED. THAT IF HE CAN NOT FIND THE CALL LIGHT THAT HE CAN CALL OUT AND THE NURSE STAFF WILL HEAR HIM.
--- NOTE | 2024-04-13 11:02 | NUR ---
PT NOT AVAILABLE FOR VISIT. PROVIDED PRAYER.
[2024-04-13 11:33] LABS: HEPATITIS A ANTIBODY, IGM Negative (Negative); HEPATITIS B CORE ANTIBODY, IGM Negative (Negative); HEPATITIS B SURFACE ANTIGEN Negative (Negative); HEPATITIS C AB CIA INTERP Negative (Negative); HEPATITIS C ANTIBODY CIA INDEX 0.19 IV (())
--- NOTE | 2024-04-13 12:29 | NUR ---
PATIENT CALLED TO INFORM THIS RN THAT HE HAD FINISHED LUNCH. THIS RN INTO ROUND AND COMPLETE ASSESSMENT, PATIENT UP TO BATHROOM TO VOID, STANDBY ASSIST FOR CORD MANAGEMENT. PATIENT TOLERATED WELL, HE DOES NOT REPORT ANY PAIN OR NAUSEA. NO NEW CONCERNS ON ASSESSMENT, DISCUSSED WITH PATIENT PLAN FOR RENAL US, AND THAT IS IS PREFERED TO HAVE A FULL BLADDER AT THAT TIME, AROUND 1500. PATIENT VERBALIZED NO FURTHER NEEDS AT THIS TIME.
--- NOTE | 2024-04-13 13:46 | NUR ---
PATIENT TO GO TO A HIGHER LEVEL OF CARE PER MD NOTES. THERE ARE NO NEEDS FOR TAVERN KEEPER AT THIS TIME. PATIENT IS ON A WAIT LIST TO BE TRANSFERED.
--- NOTE | 2024-04-13 15:38 | NUR ---
PATIENT HAS WORKED WITH BOTH O.T. AND P.T. AMBULATING IN HALLS, BACK TO BED NOW WATCHING Sassor ON HIS DAUGHTERS TABLET. ORTHOSTATIC B/P'S TAKEN, NEGATIVE RESULTS.
--- NOTE | 2024-04-13 17:34 | NUR ---
PATIENT DINNER TRAY BROUGHT INTO ROOM, PATIENT SAID, "I NEED TO USE THE BATHROOM FIRST." PATIENT VOIDED 400ML YELLOW URINE. HE TOLERATED ACTIVITY WELL. SET UP HIS DINNER TRAY WITH HAND TOWEL. HIS DAUGHTER SAID SHE PLANS TO LEAVE FOR AN HOUR TO EAT AND THEN COME BACK, NOTIFIED THAT NEW REPORTS HAVE BEEN PROVIDED BY FELICE PATIENTS DAUGHTER, AND THAT ECHOCARDIOGRAM WILL BE OBTAINED THIS EVENING.
--- NOTE | 2024-04-13 17:55 | NUR ---
PATIENT DAUGHTER AND SON-IN-LAW IN ROOM VISITING FROM [place].
--- NOTE | 2024-04-13 18:31 | NUR ---
CARPENTRY FOREMAN IN PATIENT ROOM NOW. ROUNDED AND UPDATED ON PATIENT DAY.
--- NOTE | 2024-04-13 19:45 | NUR ---
HAND OFF REPORT RECEIVED FROM FERDINAND PINEDA. PT LAYING AWAKE IN BED WATCHING HIS IPAD WITH FAMILY AT BEDSIDE. PT IS ALERT AND ORIENTED, DENIES FEELING ANY SOB OR PAIN. PT REMAINS ON ROOM AIR AND SATURATING WELL. PT LUNGS ARE CLEAR/DIM. PT BT ARE ACTIVE. PT STATES HE FEELS WELL AND THAT HE HAD A GOOD DAY. PT BLOOD PRESSURES REMAIN STABLE, WITH NO NEED FOR PRESSURE SUPPORT. PT STILL WAITLISTED FOR TRANSFER. PT PROVIDED WITH FRESH ICE WATER. NO FURTHER NEEDS AT THIS TIME. CALL LIGHT WITHIN REACH.
--- NOTE | 2024-04-13 21:33 | NUR ---
PT UP TO USE RESTROOM AND BACK TO BED. PT VOIDED AND HAD BM. PT LINEN CHANGED AND CHANGED INTO NEW GOWN. PT HAS NO FURTHER NEEDS AT THIS TIME. CALL LIGHT WITHIN REACH.
--- NOTE | 2024-04-13 23:19 | NUR ---
IN PT ROOM TO ADJUST BP CUFF. PT LAYING AWAKE IN BED. PT DENIES ANY NEEDS AT THIS TIME. CALL LIGHT WITHIN REACH. BED IN LOW AND LOCKED POSITION.
[2024-04-14] VITALS (10 sets, daily range): BP systolic 79–105; BP diastolic 52–66
--- NOTE | 2024-04-14 00:39 | NUR ---
PATIENT UP TO THE BATHROOM TO VOID. PATIENT AMBULATES WELL WITH SBA ONLY. PATIENT VOIDED TO TOILET, NO URNAL. UNMEASURED VOID X1. PATIENT RETURNED TO BED. DENIED FURTHER NEEDS. CALL LIGHT IN REACH.
--- NOTE | 2024-04-14 00:49 | NUR ---
PT ASSESSMENT COMPLETE. NO NEW CHANGES. PT VITAL SIGNS REMAIN STABLE. PT HAS NO NEEDS AT THIS TIME. CALL LIGHT WITHIN REACH.
--- NOTE | 2024-04-14 01:58 | NUR ---
PT RESTING IN BED WITH EYES CLOSED. RESPIRATIONS EVEN AND UNLABORED. PT VITAL SIGNS STABLE. CALL LIGHT WITHIN REACH.
--- NOTE | 2024-04-14 04:41 | NUR ---
PT ASSESSMENT COMPLETE. NO NEW CHANGES. PT VSS. NO NEEDS AT THIS TIME. CALL LIGHT WITHIN REACH.
--- NOTE | 2024-04-14 05:11 | NUR ---
IN PT ROOM TO DRAW LABS. PT REQUEST TO USE RESTROOM. PT VOIDS THEN BACK TO BED. PT STEADY ON FEET, X1 SBA FOR CORD MANAGMENT. PT PROVIDED WITH FRESH ICE WATER. NO FURTHER NEEDS AT THIS TIME. CALL LIGHT WITHIN REACH.
[2024-04-14 05:15] LABS: BASOPHILS 0.1 % (0-2); HEMATOCRIT 35.5 % (35.0-50.0); HEMOGLOBIN 12.3 g/dL (12.0-18.0); LYMPHOCYTES 18.1 % (24-44); MCHC 34.6 g/dl (30-36); MCV 98.4 fl (81-99); MONOCYTES 10.3 % (0-12); NEUTROPHILS 51.5 % (39-80); PLATELET COUNT 145 K/uL (140-440); RBC 3.61 M/ul (4.3-5.7); RDW 14.9 (10.5-15.0)
[2024-04-14 05:23] LABS: ALBUMIN 2.6 g/dL (3.4-5.0); ALBUMIN/GLOBULIN RATIO 0.84 (1.1-2.4); ANION GAP 12.5 (7-21); BILIRUBIN, TOTAL 1.1 ng/dL (0.2-1.0); BUN/CREATININE RATIO 20.39 (6.0-28.6); CALCIUM 8.1 mg/dL (8.5-10.1); CREATININE, SERUM 2.01 mg/dL (0.70-1.30); POTASSIUM 4.5 mmol/L (3.5-5.1); PROTEIN, TOTAL 5.7 g/dL (6.4-8.2)
--- NOTE | 2024-04-14 07:16 | NUR ---
ASSISTED PATIENT TO THE BATHROOM. PATIENT STEADY ON HIS FEET. VOIDED AND RETURNED TO BED. OFFERED PATIENT TO SIT IN THE RECLINER. PATIENT DECLINED. NO OTHER NEEDS AT THIS TIME. CALL LIGHT IN REACH.
--- NOTE | 2024-04-14 07:30 | NUR ---
REPORT RECIEVED. RESTING IN BED. NO DISTRESS NOTED.
--- NOTE | 2024-04-14 08:00 | NUR ---
ASSESSMENT DONE. TALKED WITH PATIENT ABOUT POC, INDICATES UNDERSTANDING. DENIES PAIN, SHORTNESS OF BREATH. SL PATENT. PATIENT SITTING UP IN BED FOR BREAKFAST.
[2024-04-14] MEDS ORDERED: AMIODARONE HCL 200 MG TAB PO SCH (09:00)
--- NOTE | 2024-04-14 09:00 | NUR ---
TOOK BREAKFAST WELL. DENIES PROBLEMS. DR. ZAYAS HERE TO SEE PATIENT. DR. ZAYAS WILL TALKE WITH PATIENT DAUGHTER REGARDING PLAN.
--- NOTE | 2024-04-14 09:30 | NUR ---
AFTER DR. ZAYAS TALKED WITH DAUGHTER, PATIENT POC IS FOR DISCHARGE. PATIENT IS AWARE. FAMILY MEMBERS ARE IN ROOM.
--- NOTE | 2024-04-14 10:00 | NUR ---
FABRIC WORKER LEADER DC'D.
--- NOTE | 2024-04-14 10:00 | NUR ---
AMBULATED TO FOR SHAVE AND TO BRUSH TEETH, THEN TO SHOWER IN 118. DENIES SHORTNESS OF BREATH WITH EXERTION, DENIES DIZZINESS.
--- NOTE | 2024-04-14 10:30 | NUR ---
TOLERATED SHOWER WELL. SL DC'D WITH CATH INTACT. PATIENT DRESSED. STABLE ON FEET.
--- NOTE | 2024-04-14 10:50 | NUR ---
VISITING WITH FRIEND. PATIENT AWATING DISCHARGE.
--- NOTE | 2024-04-14 11:50 | NUR ---
DISCHARGE INSTRUCTIONS GIVEN TO PATIENT AND PATIENT DAUGHTER. BOTH INDICATE UNDERSTANDING. PATIENT DISCHARGED TO HOME ACCOMPANY BY DAUGHTER AND ASSISTANT PRODUCTION EDITOR VIA W/C.
== END 2024-04-14 11:50 | disposition home or self-care (01) | DRG 683 ==
LOC: ED 09:34 → MS 09:35 → CCU 04-12 13:45
PROVIDERS: Emergency Medicine; ADMIT Student in an Organized Health Care Education/Training Program; ATTEND Student in an Organized Health Care Education/Training Program
PROC: 3E033XZ Introduction of Vasopressor into Peripheral Vein, Percutaneous Approach (ICD-10-PCS; principal; 2024-04-12)
DX: N17.9 Acute kidney failure, unspecified (principal); E85.9 Amyloidosis, unspecified; N18.9 Chronic kidney disease, unspecified; E86.0 Dehydration; I50.9 Heart failure, unspecified; I95.9 Hypotension, unspecified; I48.91 Unspecified atrial fibrillation; Z66 Do not resuscitate; R74.01 Elevation of levels of liver transaminase levels; E80.6 Other disorders of bilirubin metabolism; M54.9 Dorsalgia, unspecified; Z79.01 Long term (current) use of anticoagulants; Z95.0 Presence of cardiac pacemaker; Z86.16 Personal history of COVID-19; Z79.899 Other long term (current) drug therapy
CPT/HCPCS: 36415; 36592; 71046; 76705; 76770; 80053; 80074; 83690; 83735; 83880; 85025; 93306; 97116; 97161; 97164; 97165; G0378; J1940; J2405; J7040; J7121